=== PATIENT | female | born 1955 | race Two or more races ===

== ENCOUNTER 2024-09-23 21:29 | Emergency (ER) | payer OTHER ==
[~2024-09-23] VITALS: Ht 162.6 cm; Wt 63.5 kg
[2024-09-23] MEDS ORDERED: ORPHENADRINE CITRATE 30 MG/ML AMPUL IM STA (22:27)
[2024-09-23] MEDS ORDERED: ORPHENADRINE CITRATE 30 MG/ML AMPUL ONE (22:28)
== END 2024-09-23 22:59 | disposition home or self-care (01) ==
LOC: ER 21:29
DX: M54.50 Low back pain, unspecified (principal); M85.88 Other specified disorders of bone density and structure, other site; M62.830 Muscle spasm of back
CPT/HCPCS: 72100; 96372; 99283; J2360

== ENCOUNTER 2024-10-06 13:19 | Inpatient (IN) | payer OTHER ==
[~2024-10-06] VITALS: Ht 162.6 cm; Wt 63.5 kg
--- NOTE | 2024-10-06 13:43 | NUR ---
SE RECIBE PTE ALERTA Y ORIENTADA X3 AMBULANDO A TRIAGE CON QUEJA PRINCIPAL DE ADORMECIMIENTO EN LADO DERECHO EL CUERPO, DESDE LA NATAN HASTA LA MANO DERECHA. SE OBSERVA SIMETRIA EN KVNG Y BRAZOS, HABLA EN ORACIONES COMPLETAS, PRESENTA FUERZA SIMETRICA. SE MIDEN SV Y SE UBICA.
--- NOTE | 2024-10-06 15:41 | NUR ---
SE EDUCA SOBRE TX MEDICO, ESTA REFIERE ENTENDER. SE EXTRAEN MUESTRAS DE LABORATORIO NATHALIA ORDEN MEDICA. PENDIENTE U/A.
[2024-10-06 16:02] LABS: BASO % 0.6 % (0.1-1.2); EOS % 3.2 % (0.7-7.0); HEMATOCRIT 34.7 % (34.1-44.9); HEMOGLOBIN 11.4 g/dL (11.2-15.7); LYMPH # 2.75 (1.18-3.74); LYMPH % 29.3 % (19.3-53.1); MEAN CORPUSCULAR HEMOGLOBIN 26.3 pg (25.6-32.2); MONO % 5.3 % (4.7-12.5); NEUT # 5.71 (1.56-6.13); PLATELET COUNT 266 K/uL (163-369); RED BLOOD COUNT 4.34 M/uL (3.93-5.22); RED CELL DISTRIBUTION WIDTH 12.6 % (11.6-14.4)
[2024-10-06 16:30] LABS: ALBUMIN 3.5 gm/dL (3.4-5.0); BILIRUBIN TOTAL 0.31 mg/dL (0.3-1.2); CALCIUM 9.3 mg/dL (8.5-10.1); CREATININE SERUM 2.66 mg/dL (0.55-1.02); GFR 17.72; GLOBULINA 4.2 G/DL (2.4-3.5); POTASSIUM 4.88 mEq/L (3.5-5.1); TOTAL PROTEIN 7.7 gm/dL (6.4-8.2)
[2024-10-06 17:04] LABS: PH,URINE 5.5 (5.0-8.0); URINE APPEARANCE Clear; URINE BILIRRUBIN Negative (NEGATIVE); URINE BLOOD Small; URINE COLOR Yellow; URINE KETONE Negative (NEGATIVE); URINE LEUKOCYTE Negative; URINE NITRATE Negative; URINE UROBILINOGEN 0.2 E.U./dl
[2024-10-06 17:08] LABS: URINE BACTERIA 130.8 uL (0.0-1933); URINE EPITHELIAL CELLS 8.2 uL (0.0-38.8); URINE RBC 4.4 uL (0.0-20.8); URINE WBC 10.5 uL (0.0-23.2)
[2024-10-06 17:12] LABS: URINE CAST 0.29 uL (0.0-1.40); URINE GLUCOSE 500 MG/DL (NEGATIVE); URINE PROTEIN 300 (NEGATIVE)
[2024-10-06] MEDS ORDERED: ORPHENADRINE CITRATE 30 MG/ML AMPUL IM STA (17:23)
[2024-10-06] MEDS ORDERED: ORPHENADRINE CITRATE 30 MG/ML AMPUL ONE (17:28)
[2024-10-06] MEDS ORDERED: 0.9 % SODIUM CHLORIDE 1,000 ML IV STA (17:48)
[2024-10-06] MEDS ORDERED: GABAPENTIN 100 MG CAPSULE PO SCH (19:56)
[2024-10-06] MEDS ORDERED: FAMOTIDINE/PF 20 MG in 0.9 % SODIUM CHLORIDE 8 ML IV PUSH SCH (19:57)
[2024-10-06] MEDS ORDERED: NIFEDIPINE 30 MG TAB.SA.OSM PO SCH (19:58)
[2024-10-06] MEDS ORDERED: DEXTROSE 50 % IN WATER 0.5 G/ML DISP.SYRIN IV PRN (20:00)
[2024-10-06] MEDS ORDERED: ACETAMINOPHEN 500 MG GEL..CAP PO PRN (20:00)
[2024-10-06] MEDS ORDERED: INSULIN LISPRO 1,000 UNIT/10 ML UNITS SUBCUTANEO PRN (20:00)
[2024-10-06] MEDS ORDERED: 0.9 % SODIUM CHLORIDE 1,000 ML IV SCH (20:00)
[2024-10-07 01:10] LABS: PROTHROMBIN TIME 10.9 SECONDS (9.0-11.5)
[2024-10-07 01:11] LABS: PARTIAL THROMBOPLASTIN TIME < 20.0 SECONDS (22.0-34.0)
[2024-10-07 01:18] LABS: MAGNESIUM 1.5 mg/dL (1.8-2.4)
[2024-10-07 01:24] LABS: CHOL HDL RATIO 4.8 (0-5.0)
[2024-10-07 02:16] LABS: TSH 3.76 uIU/mL (0.358-3.74)
[2024-10-07 02:54] VITALS: BP 130/80
[2024-10-07 04:00] VITALS: BP 190/100; O2SAT 95
[2024-10-07] MEDS ORDERED: APIXABAN 2.5 MG TABLET PO SCH (05:00)
[2024-10-07 08:26] VITALS: BP 130/79
[2024-10-07] MEDS ORDERED: MAGNESIUM SULFATE/D5W 1GM/100ML PIGGYBAG IV NR (11:00)
[2024-10-07 14:13] LABS: CALCIUM 8.9 mg/dL (8.5-10.1); CREATININE SERUM 2.25 mg/dL (0.55-1.02); GFR 21.5; MAGNESIUM 1.6 mg/dL (1.8-2.4); PHOSPHOROUS 4.2 mg/dL (2.5-4.9); POTASSIUM 4.44 mEq/L (3.5-5.1)
[2024-10-07 14:51] LABS: T4 FREE 0.96 NG/ML (0.76-1.46); TSH 4.39 uIU/mL (0.358-3.74)
[2024-10-07 16:24] VITALS: BP 148/77; O2SAT 99
[2024-10-08 01:31] VITALS: BP 146/62; O2SAT 97
[2024-10-08 08:02] VITALS: BP 157/89; O2SAT 99
[2024-10-08] MEDS ORDERED: ROSUVASTATIN CALCIUM 10 MG TABLET PO SCH (09:00)
[2024-10-08] MEDS ORDERED: ROSUVASTATIN CALCIUM 20 MG TABLET PO SCH (09:00)
[2024-10-08] MEDS ORDERED: MAGNESIUM SULFATE 50% 1,000 MG/2 ML VIAL IM NR (10:10)
[2024-10-08] MEDS ORDERED: PANTOPRAZOLE SODIUM 40 MG TABLET.DR PO SCH (10:12)
[2024-10-08] MEDS ORDERED: ROSUVASTATIN CALCIUM PO SCH (10:15)
[2024-10-08 19:13] VITALS: BP 151/71; O2SAT 99
[2024-10-09] VITALS: BP 146/55; O2SAT 97
[2024-10-09] MEDS ORDERED: LEVOTHYROXINE SODIUM 50 MCG TABLET PO SCH (06:00)
[2024-10-09 07:24] LABS: CALCIUM 8.4 mg/dL (8.5-10.1); CREATININE SERUM 2.37 mg/dL (0.55-1.02); GFR 20.25; MAGNESIUM 2.1 mg/dL (1.8-2.4); PHOSPHOROUS 4.2 mg/dL (2.5-4.9); POTASSIUM 4.73 mEq/L (3.5-5.1)
[2024-10-09 08:46] VITALS: BP 160/69; O2SAT 97
[2024-10-09] MEDS ORDERED: ROSUVASTATIN CALCIUM 20 MG TABLET PO SCH (09:00)
[2024-10-09] MEDS ORDERED: NIFEDIPINE 60 MG TAB.SA.OSM PO SCH (09:00)
[2024-10-09] MEDS ORDERED: ELIQUIS2.5 MG PO (10:05)
[2024-10-09] MEDS ORDERED: NIFEDIPINE ER90 M1 PO (10:05)
[2024-10-09] MEDS ORDERED: GABAPENTIN100 MG PO (10:06)
[2024-10-09] MEDS ORDERED: PANTOPRAZOLE SO40 MG PO (10:07)
[2024-10-09] MEDS ORDERED: LEVOTHYROXINE50 MCG PO (10:07)
[2024-10-09] MEDS ORDERED: ROSUVASTATIN CA20 MG PO (10:12)
== END 2024-10-09 13:09 | disposition home or self-care (01) | DRG 684 ==
LOC: ER 13:30 → MEDI 21:56
PROVIDERS: General Practice; ADMIT Internal Medicine; ATTEND Internal Medicine
PROC: B020ZZZ Computerized Tomography (CT Scan) of Brain (ICD-10-PCS; principal; 2024-10-06)
PROC: BT43ZZZ Ultrasonography of Bilateral Kidneys (ICD-10-PCS; 2024-10-06)
DX: N17.9 Acute kidney failure, unspecified (principal); E86.0 Dehydration; M54.89 Other dorsalgia; R20.0 Anesthesia of skin; I12.9 Hypertensive chronic kidney disease with stage 1 through stage 4 chronic kidney disease, or unspecified chronic kidney disease; N18.9 Chronic kidney disease, unspecified; M50.30 Other cervical disc degeneration, unspecified cervical region